=== PATIENT | female | born 1945 | race Caucasian/White ===

== ENCOUNTER 2019-02-05 16:12 | Emergency (ER) | payer MEDICARE ==
[2019-02-05 17:14] VITALS: BP 128/53
--- NOTE | 2019-02-05 18:45 | UC ---
Throat Pain/Nasal Darwin HPI - HPI Summary HPI Summary: 73 yo woman with many chronic medical conditions including diabetes, s/p breast cancer, liver dysfunction and chronic anemia. She sees Dr. Kurtz for management. Comes in with a 2 day history of bilateral eye crusting, soreness and itchiness, and a sore throat and cough, but without fever. - History of Current Complaint Chief Complaint: UCGeneralIllness Stated Complaint: BILATERAL EYES SORE THROAT Time Seen by Provider: 02/05/19 18:34 Hx Obtained From: Patient Onset/Duration: Gradual Onset, Lasting Days - 2 Severity: Moderate Pain Intensity: 7 Cough: Nonproductive Associated Signs & Symptoms: Positive: Hoarseness - Epiglottits Risk Factors Epiglottis Risk Factors: Negative - Allergies/Home Medications Allergies/Adverse Reactions: Allergies Allergy/AdvReac Type Severity Reaction Status Date / Time codeine Allergy Rash Verified 02/05/19 17:10 Sulfa (Sulfonamide Allergy Rash Verified 02/05/19 17:10 Antibiotics) Home Medications: Home Medications Carvedilol 6.25 mg PO 1800 02/05/19 [History Confirmed 02/05/19] Citalopram TAB* [Celexa TAB*] 40 mg PO DAILY 02/05/19 [History Confirmed ] Doxepin HCl [Silenor] 6 mg PO BEDTIME 02/05/19 [History Confirmed 02/05/19] Furosemide [Lasix] 20 mg PO DAILY 02/05/19 [History Confirmed 02/05/19] Gabapentin [Neurontin] 100 mg PO DAILY 02/05/19 [History Confirmed 02/05/19] Letrozole 2.5 mg PO DAILY 02/05/19 [History Confirmed 02/05/19] Nadolol [Corgard] 20 mg PO BEDTIME 02/05/19 [History Confirmed 02/05/19] Pantoprazole Sodium [Protonix] 40 mg PO DAILY 02/05/19 [History Confirmed ] Spironolactone 25 mg PO DAILY 02/05/19 [History Confirmed 02/05/19] hydrOXYzine HCL TAB* [Atarax 25 MG TAB*] 25 mg PO TID PRN 02/05/19 [History Confirmed 02/05/19] PMH/Surg Hx/FS Hx/Imm Hx - Additional Past Medical History Additional PMH: post breast cancer, on letrozole. history of anemia and liver dysfunction--she lacks detailed history. Endocrine History: Diabetes - diet controlled, no longer on meds Cardiovascular History: Hypertension Psychological History: Depression Cancer History: Breast Cancer - Surgical History Surgical History: Yes Surgery Procedure, Year, and Place: right mastectomy 2012. appendectomy. choley. tubal. chemo port - Family History Known Family History: Positive: Non-Contributory - Social History Occupation: Retired Lives: With Family - lives with her son Alcohol Use: None Substance Use Type: None Smoking Status (MU): Never Smoked Tobacco Review of Systems All Other Systems Reviewed And Are Negative: Yes Constitutional: Positive: Fatigue Skin: Positive: Negative Eyes: Positive: Blurred Vision, Drainage ENT: Positive: Sore Throat, Sinus Congestion Respiratory: Positive: Cough Cardiovascular: Positive: Negative Gastrointestinal: Positive: Other - decreased appetite Genitourinary: Positive: Negative Motor: Positive: Negative Neurovascular: Positive: Negative Musculoskeletal: Positive: Negative Neurological: Positive: Headache - mild, dull, right forehead area. Is Patient Immunocompromised?: No Physical Exam Triage Information Reviewed: Yes Appearance: Ill-Appearing - looks chronically unwell. No icterus, Obese Vital Signs: Initial Vital Signs Temp 98.2 F 02/05/19 17:08 Pulse 67 02/05/19 17:08 Resp 19 02/05/19 17:08 BP 128/53 02/05/19 17:08 Pulse Ox 98 02/05/19 17:08 Eye Exam: Other - bilateral lid erythema with crusting eye discharge. Eyes: Positive: Conjunctiva Inflamed, Discharge - small amount of crusting. ENT: Positive: Pharyngeal erythema, TM dull Dental Exam: Other - edentulous Neck: Positive: Nontender, No Lymphadenopathy Respiratory: Positive: Lungs clear, Normal breath sounds Cardiovascular: Positive: RRR, No Murmur Musculoskeletal Exam: Normal Neurological: Positive: Alert, Muscle Tone Normal Psychological Exam: Other - depressed mood and affect Throat Pain/Nasal Course/Dx - Course Course Of Treatment: amoxicillin for sore throat (she states that she typically is treated with uri's ). Drops for conjunctivitis. - Differential Dx/Diagnosis Differential Diagnosis/HQI/PQRI: Pharyngitis, URI, Other - conjunctivitis Provider Diagnosis: Bilateral conjunctivitis, URI, acute Discharge - Sign-Out/Discharge Documenting (check all that apply): Patient Departure All imaging exams completed and their final reports reviewed: No Studies - Discharge Plan Condition: Stable Disposition: HOME Prescriptions: Amoxicillin PO (*) [Amoxicillin 875 MG (*)] 875 mg PO BID #14 tab Ciprofloxacin 0.3% OPTH.ZOE* [Cipro 0.3% Opth*] 2 drop BOTH EYES Q4H #1 btl Patient Education Materials: Conjunctivitis (ED), Pharyngitis (ED) Referrals: Jose Álvarez MD [Primary Care Provider] - Additional Instructions: Ensure that you complete the course of antibiotic prescribed: amoxicillin 875mg twice daily. Use cipro drops to both eyes to treat the eye infection. Use warm compresses to clean away discharge and relieve the discomfort. - Billing Disposition and Condition Condition: STABLE Disposition: Home
== END 2019-02-05 19:18 | disposition home or self-care (01) ==
LOC: UCCORT 16:12
DX: H10.9 Unspecified conjunctivitis (principal); J06.9 Acute upper respiratory infection, unspecified; E11.9 Type 2 diabetes mellitus without complications; K76.89 Other specified diseases of liver; D64.9 Anemia, unspecified; I10 Essential (primary) hypertension; F32.9 Major depressive disorder, single episode, unspecified; Z79.899 Other long term (current) drug therapy; Z88.5 Allergy status to narcotic agent; Z79.811 Long term (current) use of aromatase inhibitors; Z88.2 Allergy status to sulfonamides; Z85.3 Personal history of malignant neoplasm of breast; Z90.11 Acquired absence of right breast and nipple
CPT/HCPCS: 99212; G0463

== ENCOUNTER 2020-03-16 15:05 | Emergency (ER) | payer MEDICARE, OTHER ==
[2020-03-16 15:40] VITALS: BP 108/69
--- NOTE | 2020-03-16 15:50 | UC ---
Respiratory Complaint HPI - HPI Summary HPI Summary: Pt presents with c/o cough, "runny nose", right ear pain X 3-4 days. PT is requesting COVID testing. - History of Current Complaint Chief Complaint: UCRespiratory Stated Complaint: RT EAR /COUGH Time Seen by Provider: 03/16/20 15:11 Hx Obtained From: Patient ?: No Onset/Duration: Sudden Onset, Lasting Days, Still Present Timing: Intermittent Episodes Severity Initially: Mild Severity Currently: Mild Pain Intensity: 0 Character: Cough: Nonproductive Aggravating Factors: Exertion Alleviating Factors: Spontaneous Resolution Associated Signs And Symptoms: Positive: Nasal Congestion - Risk Factors Pulmonary Embolism Risk Factors: Negative Cardiac Risk Factors: Hypertension Pseudomonas Risk Factors: Chronic Lung Disease - Allergies/Home Medications Allergies/Adverse Reactions: Allergies Allergy/AdvReac Type Severity Reaction Status Date / Time codeine Allergy Rash Verified 03/16/20 15:18 Sulfa (Sulfonamide Allergy Rash Verified 03/16/20 15:18 Antibiotics) Home Medications: Home Medications Citalopram TAB* [Celexa TAB*] 40 mg PO DAILY 02/05/19 [History Confirmed ] Doxepin HCl [Silenor] 6 mg PO BEDTIME 02/05/19 [History Confirmed 03/16/20] Furosemide [Lasix] 20 mg PO DAILY 02/05/19 [History Confirmed 03/16/20] Gabapentin [Neurontin] 100 mg PO DAILY 02/05/19 [History Confirmed 03/16/20] Letrozole 2.5 mg PO DAILY 02/05/19 [History Confirmed 03/16/20] Nadolol [Corgard] 20 mg PO BEDTIME 02/05/19 [History Confirmed 03/16/20] Pantoprazole Packet (NF) [Protonix Packet (NF)] 40 mg PO DAILY 02/05/19 [ History Confirmed 03/16/20] Spironolactone 25 mg PO DAILY 02/05/19 [History Confirmed 03/16/20] carvediloL [Carvedilol] 6.25 mg PO 1800 02/05/19 [History Confirmed 03/16/20] hydrOXYzine HCL TAB* [Atarax 25 MG TAB*] 25 mg PO TID PRN 02/05/19 [History Confirmed 02/05/19] Cetirizine* [ZyrTEC 10 MG TAB*] 10 mg PO DAILY #14 tab 03/16/20 [Rx] Ciproflox/Dexameth OTIC.SUSP* [Ciprodex OTIC.SUSP*] 2 drop RIGHT EAR Q8H 7 Days #1 btl 03/16/20 [Rx] PMH/Surg Hx/FS Hx/Imm Hx Previously Healthy: Yes Endocrine History: Dyslipidemia Cardiovascular History: Cardiac Disease, Hypertension Psychological History: Anxiety, Depression - Surgical History Surgical History: Yes Surgery Procedure, Year, and Place: right mastectomy 2012. appendectomy. choley. tubal. chemo port - Family History Known Family History: Positive: Non-Contributory - Social History Occupation: Retired Lives: With Family Alcohol Use: None Substance Use Type: None Smoking Status (MU): Never Smoked Tobacco Have You Smoked in the Last Year: No - Immunization History Vaccination Up to Date: Yes Review of Systems All Other Systems Reviewed And Are Negative: Yes Constitutional: Positive: Negative Skin: Positive: Negative Eyes: Positive: Negative ENT: Positive: Ear Ache - right Respiratory: Positive: Shortness Of Breath - with exertion, Cough Cardiovascular: Positive: Negative Gastrointestinal: Positive: Negative Genitourinary: Positive: Negative Motor: Positive: Negative Neurovascular: Positive: Negative Musculoskeletal: Positive: Negative Neurological/Mental Status: Positive: Negative Psychological: Positive: Negative Is Patient Immunocompromised?: No Physical Exam Triage Information Reviewed: Yes Appearance: Well-Appearing Vital Signs: Initial Vital Signs Temp 98.7 F 03/16/20 15:39 Pulse 73 03/16/20 15:39 BP 108/69 03/16/20 15:39 Pulse Ox 100 03/16/20 15:39 Vital Signs Reviewed: Yes Eye Exam: Normal ENT: Positive: Nasal congestion, Other - right outer ear mild swelling and c/o tragal tenderness Dental Exam: Normal Neck exam: Normal Respiratory Exam: Normal Respiratory: Positive: Normal breath sounds Cardiovascular Exam: Normal Musculoskeletal Exam: Normal Neurological Exam: Normal Psychological Exam: Normal Skin Exam: Normal Respiratory Course/Dx - Differential Dx/Diagnosis Differential Diagnosis/HQI/PQRI: Bronchitis Provider Diagnosis: Cough, Otitis externa, Seasonal allergies Discharge ED - Sign-Out/Discharge Documenting (check all that apply): Patient Departure All imaging exams completed and their final reports reviewed: No Studies - Discharge Plan Condition: Stable Disposition: HOME Prescriptions: Cetirizine* [ZyrTEC 10 MG TAB*] 10 mg PO DAILY #14 tab Ciproflox/Dexameth OTIC.SUSP* [Ciprodex OTIC.SUSP*] 2 drop RIGHT EAR Q8H 7 Days #1 btl Patient Education Materials: Otitis Externa (ED), Allergies (ED) Forms: COVID-19 Tested & Isolation Referrals: Jose Álvarez MD [Primary Care Provider] - If Needed - Billing Disposition and Condition Condition: STABLE Disposition: Home - Attestation Statements Provider Attestation: This patient was not seen by me. I was available for consult. Chart reviewed. [email or web address]
== END 2020-03-16 15:49 | disposition home or self-care (01) ==
LOC: UCCORT 15:05
DX: R05 Cough (principal); H60.91 Unspecified otitis externa, right ear; J30.2 Other seasonal allergic rhinitis; Z20.828 Contact with and (suspected) exposure to other viral communicable diseases; I10 Essential (primary) hypertension; F41.9 Anxiety disorder, unspecified; F32.9 Major depressive disorder, single episode, unspecified; Z79.899 Other long term (current) drug therapy; Z88.5 Allergy status to narcotic agent; Z88.2 Allergy status to sulfonamides
CPT/HCPCS: 87635; 99212; G0463; U0003